=== PATIENT | male | born 1995 | race Caucasian/White ===

== ENCOUNTER 2017-10-18 15:35 | Emergency (ER) | payer BC ==
[2017-10-18 17:56] VITALS: BP 108/58
--- NOTE | 2017-10-26 09:54 | ED ---
Skin Complaint - HPI Summary HPI Summary: Patient is an otherwise healthy 22-year-old male who presents to the ED with a cut his r little finger on a new mandolin appx 20 mon ago has avulsion lac to tip with some active bleeding. There is no nail involvement. Denies any numbness, tingling to the finger. He has never injured this finger before. Full range of motion without pain. Symptoms are aggravated by nothing, relieved with vomiting. He has not taken anything [id number] for relief. - History of Current Complaint Chief Complaint: EDLacSutureRecheck Time Seen by Provider: 10/18/17 17:16 Stated Complaint: RT FINGER LAC Hx Obtained From: Patient Onset/Duration: Started Hours Ago Skin Exposure Onset/Duration: Hours Ago Timing: Constant Onset Severity: Mild Current Severity: Mild Pain Intensity: 0 Pain Scale Used: 0-10 Numeric Skin Location: Hand Aggravating Symptom(s): Nothing Alleviating Symptom(s): Nothing Associated Signs & Symptoms: Negative Related History: Trauma - Allergy/Home Medications Allergies/Adverse Reactions: Allergies Allergy/AdvReac Type Severity Reaction Status Date / Time No Known Allergies Allergy Verified 10/18/17 15:48 PMH/Surg Hx/FS Hx/Imm Hx Previously Healthy: Yes - Immunization History Hx Pertussis Vaccination: No Immunizations Up to Date: Unable to Obtain/Confirm Infectious Disease History: No Infectious Disease History: Denies: Traveled Outside the [place] in Last 30 Days - Social History Occupation: Employed Full-time Lives: With Family Alcohol Use: None Hx Substance Use: No Substance Use Type: Reports: None Hx Tobacco Use: No Smoking Status (MU): Never Smoked Tobacco Review of Systems Constitutional: Negative Negative: Fever, Chills, Fatigue Eyes: Negative Cardiovascular: Negative Respiratory: Negative Positive: no symptoms reported, see HPI Musculoskeletal: Negative Positive: Other - right avulsion to the skin of the distal tip of the pinky Neurological: Negative All Other Systems Reviewed And Are Negative: Yes Physical Exam Triage Information Reviewed: Yes Vital Signs On Initial Exam: Initial Vitals Temp Pulse Resp BP Pulse Ox 97.9 F 51 16 103/42 100 10/18/17 15:45 10/18/17 15:45 10/18/17 15:45 10/18/17 15:45 10/18/17 15:45 Vital Signs Reviewed: Yes Appearance: Positive: Well-Appearing, Well-Nourished Skin: Positive: Warm, Skin Color Reflects Adequate Perfusion, Other - Distal right pinky finger skin avulsion Head/Face: Positive: Normal Head/Face Inspection Eyes: Positive: EOMI, GARFIELD, Conjunctiva Clear Neck: Positive: Supple, No Lymphadenopathy Respiratory/Lung Sounds: Positive: Clear to Auscultation, Breath Sounds Present Cardiovascular: Positive: Normal, RRR, Pulses are Symmetrical in both Upper and Lower Extremities Musculoskeletal: Positive: Strength/ROM Intact Neurological: Positive: Speech Normal Psychiatric: Positive: Normal, Affect/Mood Appropriate AVPU Assessment: Alert Diagnostics - Vital Signs Vital Signs Temp Pulse Resp BP Pulse Ox 10/18/17 17:53 98.8 F 66 18 108/58 100 10/18/17 15:45 97.9 F 51 16 103/42 100 - Laboratory Lab Statement: Any lab studies that have been ordered have been reviewed, and results considered in the medical decision making process. Course/Dx - Course Course Of Treatment: During the course of treatment, the patient was evaluated for avulsion to the distal tip of the pinky finger. There is no skin overlying to provide good sutures for laceration repair. Xeroform to the distal tip with tube gauze placed. He will change the bandage every day for 3 days then leave open to air. He is okay with this plan and discharged. - Diagnoses Provider Diagnoses: Skin avulsion Discharge - Discharge Plan Condition: Stable Disposition: HOME Patient Education Materials: Skin Avulsion (ED) Referrals: [facility] - Eusebio MENA [Primary Care Provider] - Additional Instructions: Leave gauze wrapped in change as needed for any seepage or soak 32 days, then leave open to air The skin will slowly epithelialize and reform, but may take several months.
== END 2017-10-18 17:53 | disposition home or self-care (01) ==
LOC: ED 15:35
DX: S61.216A Laceration without foreign body of right little finger without damage to nail, initial encounter (principal); X58.XXXA Exposure to other specified factors, initial encounter; Y92.9 Unspecified place or not applicable
CPT/HCPCS: 99281